=== PATIENT | female | born 1975 | race Caucasian/White ===

== ENCOUNTER → 2019-01-10 16:56 | Outpatient (CLI) | payer SELFPAY ==
[2019-01-13 16:33] LABS: HPV Reflexed? NOT INDICATED
== END ==
PROVIDERS: Visit Provider Obstetrics & Gynecology
DX: Z12.4 Encounter for screening for malignant neoplasm of cervix (principal)
CPT/HCPCS: 87624; 88175; G0145

== ENCOUNTER → 2019-02-02 15:17 | Outpatient (CLI) | payer SELFPAY ==
--- NOTE | 2019-02-02 15:27 | BI_ITS ---
MAMMOGRAPHY - BILATERAL SCREENING REASON FOR EXAM: Female, 43 years old. Routine annual screening examination. PERTINENT HISTORY: Grandmother with breast cancer. TECHNIQUE: Digital bilateral breast anette (3D mammographic acquisition) in the CC and MLO projections. 2-D mediolateral oblique (MLO) and craniocaudad (CC) views of both breasts were obtained. CAD: Full Field Digital Mammography with Computer Added Detection was performed. COMPARISON: Comparison is made with prior examination dated April 09, 2009. FINDINGS: Breast Composition: The breasts are heterogeneously dense, which may obscure small masses. There are no dominant masses or suspicious calcifications. No other significant abnormalities are identified. There has been no significant change since the prior study. BI/SCREENING MAMM (CAD), BILAT IMPRESSION: Stable bilateral screening mammogram. Yearly follow-up mammogram recommended. (A) ASSESSMENT CATEGORY: BIRADS Category 1: Negative. A letter regarding these results will be sent to the patient by the facility within 30 days. Approximately 10% of breast cancers are not detected by mammography. A normal mammogram should not delay biopsy of a clinically suspicious abnormality. [id number] Electronically Signed: Caesar Eli, at 9:45 EDT , Service support ,
== END ==
PROVIDERS: Referring Provider Obstetrics & Gynecology; Visit Provider Obstetrics & Gynecology
DX: Z12.31 Encounter for screening mammogram for malignant neoplasm of breast (principal)
CPT/HCPCS: 77063; 77067

== ENCOUNTER → 2020-11-07 | Outpatient (CLI) | payer SELFPAY ==
[2020-11-13 14:42] LABS: HPV Reflexed? NOT INDICATED
== END | disposition home or self-care (01) ==
LOC: LABSPEC 14:35
PROVIDERS: Visit Provider Obstetrics & Gynecology
DX: Z12.4 Encounter for screening for malignant neoplasm of cervix (principal)
CPT/HCPCS: 88175; G0145

== ENCOUNTER → 2020-11-21 12:09 | Outpatient (CLI) | payer SELFPAY ==
--- NOTE | 2020-11-21 12:15 | BI_ITS ---
MAMMOGRAPHY - BILATERAL SCREENING REASON FOR EXAM: Female, 45 years old. Routine annual screening examination. PERTINENT HISTORY: Grandmother with breast cancer. TECHNIQUE: Digital bilateral breast arvin (3D mammographic acquisition) in the CC and MLO projections. 2-D mediolateral oblique (MLO) and craniocaudad (CC) views of both breasts were obtained. CAD: Full Field Digital Mammography with Computer Added Detection was performed. COMPARISON: Comparison is made with prior study dated 02/02/2019. FINDINGS: Breast Composition: The breasts are heterogeneously dense, which may obscure small masses. There are no dominant masses or suspicious calcifications. Stable small benign-appearing bilateral axillary lymph nodes. No other significant abnormalities are identified. There has been no significant change since the prior study. BI/SCRN MAMM (CAD)W/ARVIN BILAT IMPRESSION: Stable bilateral screening mammogram. Yearly follow-up mammogram recommended. (A) ASSESSMENT CATEGORY: BIRADS Category 2: Benign. A letter regarding these results will be sent to the patient by the facility within 30 days. Approximately 10% of breast cancers are not detected by mammography. A normal mammogram should not delay biopsy of a clinically suspicious abnormality. [id number] Electronically Signed: Caesar Eli MD at 13:01 EST , Service support ,
== END ==
PROVIDERS: Referring Provider Obstetrics & Gynecology; Visit Provider Obstetrics & Gynecology
DX: Z12.31 Encounter for screening mammogram for malignant neoplasm of breast (principal)
CPT/HCPCS: 77063; 77067

== ENCOUNTER 2021-12-11 14:05 | Outpatient (CLI) | payer SELFPAY ==
[2021-12-18 17:20] LABS: HPV Reflexed? NOT INDICATED
== END 2021-12-11 23:59 | disposition home or self-care (01) ==
LOC: LABSPEC 14:06
PROVIDERS: Visit Provider Obstetrics & Gynecology
DX: Z12.4 Encounter for screening for malignant neoplasm of cervix (principal)
CPT/HCPCS: 88175; G0145

== ENCOUNTER 2021-12-16 12:05 | Outpatient (CLI) | payer SELFPAY ==
--- NOTE | 2021-12-16 12:11 | BI_ITS ---
MAMMOGRAPHY - BILATERAL SCREENING REASON FOR EXAM: Female, 46 years old. Routine annual screening examination. PERTINENT HISTORY: Grandmother with breast cancer. TECHNIQUE: Digital bilateral breast arvin (3D mammographic acquisition) in the CC and MLO projections. 2-D mediolateral oblique (MLO) and craniocaudad (CC) views of both breasts were obtained. CAD: Full Field Digital Mammography with Computer Added Detection was performed. COMPARISON: Comparison is made with prior study dated 11/21/2020. FINDINGS: Breast Composition: The breasts are heterogeneously dense, which may obscure small masses. There are no dominant masses or suspicious calcifications. Stable small benign appearing bilateral axillary lymph nodes. No other significant abnormalities are identified. There has been no significant change since the prior study. BI/SCRN MAMM (CAD)W/ARVIN BILAT IMPRESSION: Stable bilateral screening mammogram. Yearly follow-up mammogram recommended. (A) ASSESSMENT CATEGORY: BIRADS Category 2: Benign. A letter regarding these results will be sent to the patient by the facility within 30 days. Approximately 10% of breast cancers are not detected by mammography. A normal mammogram should not delay biopsy of a clinically suspicious abnormality. [id number] Electronically Signed: Caesar Eli MD at 13:17 EDT ,
== END 2021-12-16 23:59 | disposition home or self-care (01) ==
LOC: OPBI 12:06
PROVIDERS: Visit Provider Obstetrics & Gynecology
DX: Z12.31 Encounter for screening mammogram for malignant neoplasm of breast (principal); Z80.3 Family history of malignant neoplasm of breast
CPT/HCPCS: 77063; 77067

== ENCOUNTER 2022-02-03 05:22 | Day surgery (SDC) | payer SELFPAY ==
[2022-01-28 15:30] LABS: Hematocrit 42.9 % (37-47); Hemoglobin 14.9 g/dL (12.0-15.0); Mean Corp Hgb Conc 34.7 g/dL (32-36); Mean Corpuscular Hgb 30.8 pg (27.0-32.0); Mean Corpuscular Volume 88.8 fL (81-99); Mean Platelet Vol. 10.3 fl (6.2-12.0); Platelet Count 344 K/mm3 (150-450); RBC Distribution Width CV 11.4 % (11.6-14.6); RBC Distribution Width SD 36.7 fl (35.1-43.9); Red Blood Count 4.83 M/mm3 (4.2-5.4); White Blood Count 7.9 K/mm3 (4.4-11.0)
[2022-01-28 15:42] LABS: Partial Thromboplast Time 26.9 Seconds (24.1-36.2)
[2022-01-28 16:01] LABS: Creatinine, Serum 0.79 mg/dL (0.55-1.02); EST Glomerular Filtration Rate 84 mL/min (>60); Est Glom Filt Rate - Afr Amer 101 mL/min (>60)
[2022-01-28 16:10] LABS: Magnesium 2.3 mg/dL (1.6-2.6); Thyroid Stim Hormone (TSH) 8.15 uIU/mL (0.358-3.74)
[2022-01-30 18:02] LABS: Free T3 2.1 pg/mL (2.18-3.98)
--- NOTE | 2022-02-02 11:28 | HP.PCM_ITS ---
History and Physical Date of Admission: 02/03/22 Surgical History and Physical Aline Aragon, a 46 year old female 2 0 1 0 2, presents for RAVH/BSO on February 03, 2022 at 0730. -- Pelvic Pain and Dyspareunia Likely from Adenomyosis; Submucous Fibroids -- AUB for several years. Claims bleeds through clothes on occasion. Had thyro id ablation and no longer taking meds due to cost and other bills like at the hospital. Wants the bleeding to stop. PT had previous ablation and tuballigation. U/S shows submucous fibroids and likely adenomyosis. Still thinking about having a BSO and decided she wants to proceed with BSO. MEDICATIONS HISTORY: Current medications prescribed by our practice are: 1. Synthroid 50 mcg tablet, One pill by mouth once a day Patient is also takin. [place] Thyroid 90 mg tablet ALLERGIES: NKA Infections - Chicken pox Illnesses - no serious past illnesses Accidents - no injuries of consequence Hospitalizations - Childbirth and see surgery Review of Systems: GENERAL - Denies fever, or chills SKIN - Denies skin changes EYES - Denies visual changes EARS - Denies difficulty hearing NOSE - Denies nasal congestion or bleeding MOUTH - Denies sore throat or difficulty swallowing NECK - Denies pain or swelling RESPIRATORY - Denies shortness of breath or wheezing CARDIOVASCULAR - Denies palpitations or chest pain GASTROINTESTINAL - Denies nausea, vomiting, diarrhea, constipation GENITOURINARY - Denies dysuria, frequency of urination, incontinence of urine MUSCULOSKELETAL - Denies joint or muscle pain NEUROLOGICAL - Denies localized numbness or weakness PSYCHIATRIC - Denies depression or anxiety ENDOCRINE - Denies heat or cold intolerance, weight loss or gain HEMATO-IMMUNOLOGIC - Denies excesive bleeding with cuts SOCIAL HISTORY: Alcohol Use - None Smoking - former smoker, quit 2011 Diet - no special diet Lifestyle - moderate stress lifestyle and Exercise - minimal Seat Belt Use - always 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 Maternal Grandmother: Heart Disease. Paternal Grandmother: Breast cancer. MENSTRUAL HISTORY: LMP Known?- Definite Amount/Duration - 5 to 7 days, Regularity - Irregular, Frequency - variable days, LMP - 01/11/22 PAST PREGNANCIES: Total Pregnancies - 3; Full Term Pregnancies - 2; Premature - 0; Abortions, Induced - 0; Abortions, Spontaneous - 1; Ectopics - 0; Multiple Births - 0; Living Children - 2 SURGICAL HISTORY: 1. left arm surgery as child 2. 11/01/2004 hysteroscopy, Ablation, Tubal PHYSICAL EXAM BP- 132/86 Sitting, Right arm, regular cuff Weight- 178.0 lbs Height- 62 inch BMI:32.6 CONSTITUTIONAL - NAD, well nourished, and well developed SKIN - No rash, lesions, or ulcers HEENT - Normocephalic, PERRLA, EOMI NECK - No nodes, no nuchal rigidity and thyroid normal size and texture LYMPH NODES - Palpation of lymph nodes in neck and groins within normal limits LUNGS - CTA x2 without wheezes, crackles or rales CARDIAC - Regular rate and rhythm without rubs, murmurs, or gallops BREAST - No dominant masses, no tenderness, no axillary adenopathy, no nipple discharge, no skin changes ABDOMEN - Without hepatosplenomegaly, distention, masses, rebound, or guarding; normal bowel sounds; no hernias EXTREMITIES - No edema or calf tenderness NEUROLOGICAL - Cranial nerves II-XII grossly intact PSYCHIATRIC - A and O to time, place, person, mood and affect External Genitial Vagina - non-tender without lesions Urethra/Urethral Meatus - non-tender Bladder - non-tender Vagina - vaginal maxwell are pink and moist without loss of rugae and no evidence of atropy Cervix - without cervical motion tenderness and has normal size and features without evident lesions Uterus - multiparous size 6 cm & wt 75-125 g and increased tenderness Adnexa - clear without masses or tenderness ASSESSMENT/PLAN: 1. Dyspareunia, Pelvic Pain, Unspec, Premenopause Menorrhagia and Submucous Leiomyoma Uterus Discussed options to treat s/p endometrial ablation. Discussed OCPs and pt considering this versus expectant management as no intermenstrual bleeding. Plan RAVH/BSO. Discussed RBAs and all questions answered.
[2022-02-03] VITALS (11 sets, daily range): BP systolic 90–121; BP diastolic 58–78; PULSE 78–99; RESP 11–19; TEMP 36.8–37.6; O2SAT 97–100; BMI 32.6
[2022-02-03 06:04] LABS: Internal QC Validated? YES +Cl - CLEAR BKGD; Pregnancy, Urine Negative Negative
[2022-02-03] MEDS: Acetaminophen 500 MG Tablet 1000 MG PO ×2 (06:28→14:40)
[2022-02-03] MEDS: Gabapentin 600 MG Tablet PO (06:28)
[2022-02-03] MEDS: Lactated Ringers 1,000 ML 40 ML IV (06:57)
--- NOTE | 2022-02-03 07:30 | HYST_PTH ---
PATIENT: SALVADOR SOTELO [place] [facility] [id number] AGE/SX: 46/F ROOM: RE02/03/[address]: Dr. Theron Kelsey MD : 1975 BED: DIS: 02/03/2022 SPEC #: [id number] RECD: 02/03/22 11:37 STATUS: FLORA LEVI #: [id number] VIDA: 02/03/22 07:[address]: Theron Kelsey DEPT: SURGICAL PATHOLOGY RECD BY: Anika Arana ENTERED: 02/03/22 12:41 SP TYPE: HYSTERECT OTHR DR: No Primary Care Phys Tissues: Uterus, NOS Procedures: Surgery Specimen Level V HEADER OPERATION: ERAS, lap robotic hysterectomy, bilateral salpingo-oophorectomy PRE-OP DIAGNOSIS: Dyspareunia, pelvic pain, premenopause menorrhagia and submucous leiomyoma TISSUE SUBMITTED: Uterus, cervix, bilateral fallopian tubes and ovaries MICROSCOPIC DIAGNOSIS Uterus, cervix, bilateral fallopian tubes and ovaries, hysterectomy and bilateral salpingo-oophorectomy: Cervix ? chronic cystic cervicitis. Endometrium ? early secretory endometrium. Myometrium ? adenomyosis. - A small intramural leiomyoma (0.3 cm in greatest dimension). Bilateral fallopian tubes - no pathologic diagnosis. Right ovary - no pathologic diagnosis. Left ovary ? physiologic corpus luteal cysts and follicular cysts. SJ:lei 02/04/2022 COMMENT Two larger ill-defined masses are consistent with adenomyosis. MICROSCOPIC DESCRIPTION Slides are reviewed. GROSS DESCRIPTION Received in fixative is one container labeled with the patient's name and designated uterus, cervix, bilateral fallopian tubes and ovaries. The specimen consists of a hysterectomy specimen consisting of uterus with cervix, attached bilateral fallopian tubes and ovaries. The uterus with cervix weighs 103 gm and measures 9 x 6 x 4.5 cm. The serosal surface is baron, glistening. The ectocervical mucosa is unremarkable. The external os is oval in contour. The endocervical canal measures 3 cm in length and the endocervical mucosa is unremarkable. Sections reveal a few cysts filled with mucoid material. The triangular endometrial cavity measures 4 cm in length and up to 2.5 cm in width. Sections of the uterine wall reveal two ill-defined nodular masses measuring 1.5 and 3.5 cm in greatest dimension. One round small nodular mass is also noted measuring 0.3 cm in greatest dimension. All three masses are present in the anterior uterine wall. The uninvolved uterine wall measures up to 2.5 cm in thickness. The right fallopian tube measures 5 cm in length and 0.6 cm in diameter. The fimbrial end is identified. Sections reveal unremarkable cut surfaces. The right ovary measures 2.5 x 1.5 x 1 cm. Sections reveal a hemorrhagic cyst measuring 1 cm in diameter. The left fallopian tube measures 7 cm in length and 0.7 cm in diameter. The fimbrial end is identified. Sections reveal unremarkable cut surfaces. The proximal portion of the fallopian tube shows a Filshie clip which appears intact. No tubo-ovarian adhesions are identified on the right or left side. The soft to cystic left ovary measures 3.5 x 2.5 x 2.5 cm. Sections reveal two corpus lutea each measuring 1.5 cm in greatest dimension. A few smaller corpus lutea are also noted. Checker In sections are submitted in 12 cassettes as follows: 1 - anterior cervix, 2??posterior cervix, 3 & 4 - anterior uterine wall, 5 & 6 - posterior uterine wall, 7 - smaller nodular masses, 8 - largest nodular mass, 9 - right fallopian tube and ovary, 10 - left fallopian tube, 11 & 12 - left ovary. / SJ:rg 02/03/2022 TC:5 CPT: 21918
--- NOTE | 2022-02-03 07:32 | OP.PCM_ITS ---
Report of Operation Date of Procedure: 02/03/22 Pre-Operative Diagnosis: Menorrhagia, Submucous Fibroids, Dysmenorrhea Post-Operative Diagnosis: Menorrhagia, Submucous Fibroids, Dysmenorrhea Surgery/Procedure Performed:: Robotic Assisted Vaginal Hysterectomy and Bilateral Salpingo-Oophorectomy Description of Surgical Findings:: 10 cm uterus with normal-appearing fallopian tubes and ovaries. Evidence of prior tubal ligation. Adhesions noted in the uterus. Surgeon: Theron Kelsey launch manager: Brody Novak Type of Anesthesia: General (Endotracheal) Anesthesiologist: Mariana Hatch Specimen's removed: Uterus and bilateral fallopian tubes and ovaries. Drains: Ivy to straight drain (removed after surgery) Estimated Blood Loss (mL): Minimal Fluids Replaced: Crystalloid Description of Procedure: Surgeon: Theron Kelsey MD, FACOG Indication: This is a 46year old patient who has been having problems with heavy periods and submucous fibroids. She had a prior endometrial ablation done. Conservative measures have not been helpful. The patient has been counseled regarding the risks, benefits and alternatives of this procedure including the possibility of bleeding, infection, and injury to surrounding structures such as bowel bladder and all questions were answered. She understands that if BSO is done that she may need to be on HRT for an indefinite period of time. Procedure: Pt taken to the operating room where, after induction of general anesthesia, the patient was prepped and draped in the usual sterile fashion and placed on a non-slip Huggy-u-vac device. Trendelenburg test was satisfactory. Bladder was drained of urine with a Ivy catheter which was left in place. Anterior cervix grasped and cervix was dilated to about 3-4 mm. Uterus sounded to 8 cms. 0-Vicryl suture was placed at the 3:00 and 9:00 position of the cervix. A large Advincula Commanding Officer Garage Uterine Manipulator was then placed in the uterus and attention was turned to the laparoscopic portion of the procedure. Ropivocaine 0.5% was injected approximately 2-3 cm superior to the umbilicus and an 8 mm robotic camera port was introduced directly with intraperitoneal placement confirmed with CO2 insufflation. 8 mm robotic side ports were introduced under direct visualization approximately 11 cm lateral and 2 cm inferior to the umbilical port. A 5 mm left upper quadrant port was introduced and airseal insufflation with CO2 was started. The above findings were noted. Robot was docked without difficulty and attention turned to the robotic portion of the procedure. Approximately 30 cc of Ropivicaine was used. Bilateral infundibulopelvic ligaments were ligated with 35 lópez bipolar coagulation to the level of the round ligament. The posterior aspect of the cervix was identified and then opened for about 1 cm using 25 watt monopolar cautery identifying the uterine manipulating device which had been placed vaginally. Bladder flap was opened and divided to the level of the round ligaments using monopolar cautery. Progressive bites were then ligated on each side of the cervix with 35 lópez bipolar cautery to the uterine arteries. The anterior vaginal mucosa was entered and cervix circumscribed with monopolar cautery. Uterus and attached tubes and ovaries were removed through the vagina. Vaginal cuff was closed first with 0-Vicryl Galilea stitches placed at each angle followed by closure of the mid-cuff with 0-Monocryl V-lock suture in two layers. Pelvis was copiously irrigated with saline and the right ureter was noted to peristalse. Elizabeth was placed across the vaginal cuff to help with postoperative hemostasis due to some oozing. Robot was undocked and trocars were removed with as much gas as possible. Incisions were closed with 4-0 Monocryl subcuticular sutures and incisions covered with steri-strips. The patient tolerated the procedure well and was taken to the recovery room in satisfactory condition. Sponge, instruments and needle counts were all correct. There were no apparent complications of the surgery. Ancef 2 gms IV was given prior to the procedure. Estimated Blood Loss: Minimal Specimen to Pathology: Uterus and bilateral fallopian tubes Grafts/Implants Used: None Complications None Admit VTE Documentation VTE Present on Admission: Yes VTE Mechan Device Prophylaxis: SCD's
--- NOTE | 2022-02-03 07:35 | DCINST_ITS ---
Discharge Instructions Diet Discharge Diet: No restrictions Activity Discharge Activity: May Shower and May Take a Tub Bath May resume sexual activity in: 6 weeks (nothing in the vagina.) Lifting Restrictions: 25 pounds for 6 weeks. Additional Activity Instructions:: Nothing in the vagina for 6 weeks please; no lifting more than 20-25 lbs for 6 weeks. Use Ibuprophen 800 mg orally every 8 hours as needed for pain. Can also add Tylenol 1000 mg every 8 hours if needed for pain. If Ibuprophen and Tylenol are not effective then use the Oxycodone but keep in mind it can cause serious constipation issues. Drink lots of water. Call if bleeding more than a pad per hour. Use the colace as constipation is a big issue after this type of surgery. Steps and walking are OK. Activity is encouraged but do not over do it !! Dressing / Incision Call your doctor if your incision/area has: Continuous Slow Oozing, Sudden Increased Bleeding, Increased Pain/ Swelling, Increased Redness and Foul Smelling Discharge Call your doctor if you observe: Fever of 101 or Higher, Inability to urinate, Inability to have a bowel movement, Using more than 1 pad per hour and - (Some vaginal bleeding may be noted for up to 4-8 weeks.) Cleanse incision/area with: - (Let the soapy water run over your incision, rinse and pat dry.) Additional Dressing/Incision Instructions:: The white strips (Steri Strips) on your incisions will fall off on their own. If they fall off and it bothers you it is okay to put Band-Aids across the incisions. Follow Up Care Please Follow Up With: Theron Kelsey MD When: Call [phone] for an appointment to be seen in 2 weeks. Test Results: Test results from this visit will be discussed in further detail at your follow-up appointment, if applicable. Discharge Plan Admission Primary Reason for Your Visit: Robotic Vaginal Hysterectomy Attending Provider: Theron Kelsey Primary Care Provider: Care PhysicianLexie Primary Discharge Orders/Prescriptions Prescriptions: New oxycodone 5 mg capsule 5 mg PO Q6H PRN (Reason: pain (scale score 7-10)) 7 Days Qty: 7 RF: 0 docusate sodium 100 mg tablet 100 mg PO BID PRN (Reason: constipation) Qty: 60 RF: 1 estradiol 1 mg tablet 1 mg PO DAILY Qty: 90 RF: 4 Continued ibuprofen 100 mg Tablet 200 mg PO Q6H PRN (Reason: headaches) RF: 0 thyroid (pork) [[employer] Thyroid] 120 mg tablet 90 mg PO DAILY RF: 0 Referrals / Follow Up: Care Physician,No Primary [Primary Care Provider] - Disposition Disposition (needs filled in before D/C Order can be placed): Home, Self Care
[2022-02-03] MEDS: Cefazolin 2 GM in 0.9% Normal Saline 100 ML IV (07:38)
[2022-02-03 07:41] LABS: Bedside Glucose 103 mg/dL (74-106)
[2022-02-03] MEDS: Ropivacaine 0.5% 30 ML Vial (09:40)
--- NOTE | 2022-02-03 10:56 | SUR.PHASEI ---
THIS NURSE CALLED KATELYN OCEAN EXPORT COORDINATOR TO UPDATE FAMILY THAT SHE IS DOING GOOD, JUST TRYING TO TOMMY HER PAIN UNDER CONTROL.
[2022-02-03] MEDS: Ondansetron 4 MG/2 ML Vial IV (12:31)
== END 2022-02-03 14:57 | disposition home or self-care (01) ==
LOC: SDC 05:22 → AC 05:22
PROVIDERS: Anesthesiology; Referring Provider Obstetrics & Gynecology; Visit Provider Obstetrics & Gynecology
PROC: 0UT90ZZ Resection of Uterus, Open Approach (ICD-10-PCS; CPT 58552; principal; 2022-02-03 07:10)
DX: N92.4 Excessive bleeding in the premenopausal period (principal); N94.10 Unspecified dyspareunia; D25.0 Submucous leiomyoma of uterus; D25.1 Intramural leiomyoma of uterus; N83.02 Follicular cyst of left ovary; N83.12 Corpus luteum cyst of left ovary; N80.0 Endometriosis of uterus; N72 Inflammatory disease of cervix uteri; E07.9 Disorder of thyroid, unspecified; Z79.899 Other long term (current) drug therapy; Z86.16 Personal history of COVID-19; Z87.891 Personal history of nicotine dependence; Z20.822 Contact with and (suspected) exposure to COVID-19
CPT/HCPCS: 58552; S2900; 00944; 36415; 81025; 82565; 82962; 83735; 84439; 84443; 84481; 85027; 85610; 85730; 86850; 86900; 86901; 87426; 88307; C9803; J7120; J2405; J3475

== ENCOUNTER → 2022-11-19 | Outpatient (CLI) | payer SELFPAY ==
[2022-11-19 17:12] LABS: Absolute Lymphocyte Count 2.18 X10^3/uL (0.83-4.51); Absolute Neutrophil Count 5.3 X10^3/uL (2.0-7.7); Basophil# 0.06 X10^3/uL; Basophil% 0.7 % (0-1); Eosinophil# 0.13 X10^3/uL; Eosinophils% 1.6 % (0-5); Hematocrit 43.2 % (37-47); Hemoglobin 14.6 g/dL (12.0-15.0); Lymphocyte # 2.18 X10^3/ul (0.83-4.51); Lymphocyte % 26.8 % (19-41); Mean Corp Hgb Conc 33.8 g/dL (32-36); Mean Corpuscular Hgb 29.9 pg (27.0-32.0); Mean Corpuscular Volume 88.3 fL (81-99); Monocyte# 0.45 X10^3/uL; Monocyte% 5.5 % (0-10); NRBC Flagged by Analyzer 0 % (0-5); Neutrophil % 65.2 % (47-70); Platelet Count 310 K/mm3 (150-450); RBC Distribution Width CV 11.4 % (11.6-14.6); RBC Distribution Width SD 36.3 fl (35.1-43.9); Red Blood Count 4.89 M/mm3 (4.2-5.4); White Blood Count 8.1 K/mm3 (4.4-11.0)
[2022-11-19 17:46] LABS: ALB/GLOB Ratio 0.9 RATIO (0.9-2.4); AST(SGOT) 23 U/L (15-37); Alanine Aminotransfer ALT/SGPT 28 U/L (13-56); Albumin, Serum 3.7 g/dL (3.2-5.0); Alkaline Phosphatase 72 U/L (45-117); Anion Gap 9 (5-15); BUN 15 mg/dL (7-18); BUN/Creat Ratio 20.8 RATIO (10-20); Calcium,Total 9.5 mg/dL (8.5-10.1); Chloride 106 mmol/L (98-107); Cholesterol 206 mg/dL (200); Creatinine, Serum 0.72 mg/dL (0.55-1.02); EST Glomerular Filtration Rate 93 mL/min (>60); Est Glom Filt Rate - Afr Amer 112 mL/min (>60); Globulin 3.9 g/dL (2.2-4.2); Glucose 85 mg/dL (74-106); High Density Lipoprotein 53 mg/dL; Potassium 3.6 mmol/L (3.5-5.1); Protein, Total 7.6 g/dL (6.4-8.2); Sodium Level 139 mmol/L (136-145); Thyroid Stim Hormone (TSH) 0.06 uIU/mL (0.358-3.74); Triglycerides 233 mg/dL; Very Low Density Lipoprotein 47 mg/dL (5-40)
== END | disposition home or self-care (01) ==
LOC: BIMLAB 15:14
PROVIDERS: PCP Internal Medicine; Referring Provider Internal Medicine; Visit Provider Internal Medicine
DX: E78.5 Hyperlipidemia, unspecified (principal)
CPT/HCPCS: 36415; 80053; 80061; 84443; 85025

== ENCOUNTER → 2022-12-17 | Outpatient (CLI) | payer SELFPAY ==
--- NOTE | 2022-12-17 11:53 | BI_ITS ---
MAMMOGRAPHY - BILATERAL SCREENING REASON FOR EXAM: Female, 47 years old. Routine annual screening examination. PERTINENT HISTORY: Grandmother with breast cancer. TECHNIQUE: Digital bilateral breast arvin (3D mammographic acquisition) in the CC and MLO projections. 2-D mediolateral oblique (MLO) and craniocaudad (CC) views of both breasts were obtained. CAD: Full Field Digital Mammography with Computer Added Detection was performed. COMPARISON: Comparison is made with prior study dated December 16, 2021 and November 21, 2020. FINDINGS: Breast Composition: The breasts are heterogeneously dense, which may obscure small masses. There are no dominant masses or suspicious calcifications. Stable small benign-appearing bilateral axillary lymph nodes. No other significant abnormalities are identified. There has been no significant change since the prior study. BI/SCRN MAMM (CAD)W/ARVIN BILAT IMPRESSION: Stable bilateral screening mammogram. Yearly follow-up mammogram recommended. (A) ASSESSMENT CATEGORY: BIRADS Category 2: Benign. A letter regarding these results will be sent to the patient by the facility within 30 days. Approximately 10% of breast cancers are not detected by mammography. A normal mammogram should not delay biopsy of a clinically suspicious abnormality. [id number] Electronically Signed: Caesar Eli MD at 13:13 EDT ,
== END | disposition home or self-care (01) ==
LOC: OPBI 11:49
PROVIDERS: PCP Internal Medicine; Visit Provider Internal Medicine
DX: Z12.31 Encounter for screening mammogram for malignant neoplasm of breast (principal)
CPT/HCPCS: 77063; 77067

== ENCOUNTER 2022-12-22 14:17 | Outpatient (RCR) | payer SELFPAY | END 2022-12-26 23:59 | LOC: NS 14:17 | PROVIDERS: PCP Internal Medicine; Visit Provider Internal Medicine | DX: Z71.3 Dietary counseling and surveillance (principal); E66.9 Obesity, unspecified; Z68.34 Body mass index [BMI] 34.0-34.9, adult | CPT/HCPCS: 97802 ==

== ENCOUNTER → 2022-12-22 | Outpatient (CLI) | payer SELFPAY ==
[2022-12-22 15:12] LABS: T4 Free Direct 0.51 ng/dL (0.76-1.46)
[2022-12-24 12:09] LABS: ANTINUCLEAR ANTIBODIES DIRECT Positive (Negative); Anti-Centromere B Ab 1.1 AI (0.0-0.9); Anti-Chromatin 0.8 AI (0.0-0.9); Anti-Jo <0.2 AI (0.0-0.9); Anti-Scleroderma-70 AB 0.2 AI (0.0-0.9); RNP Ab 0.6 AI (0.0-0.9); SJOGREN'S Anti-SS-A test < 0.2 AI (0.0-0.9); SJOGREN'S Anti-SS-B test < 0.2 AI (0.0-0.9); Smith Ab <0.2 AI (0.0-0.9)
[2022-12-24 16:08] LABS: Anti-dsDNA Ab 2 IU/mL (0-9)
== END | disposition home or self-care (01) ==
LOC: LAB 14:05
PROVIDERS: PCP Internal Medicine; Referring Provider Internal Medicine; Visit Provider Internal Medicine
DX: E03.9 Hypothyroidism, unspecified (principal); Z83.2 Family history of diseases of the blood and blood-forming organs and certain disorders involving the immune mechanism
CPT/HCPCS: 36415; 84439; 86038; 86225; 86235

== ENCOUNTER → 2023-04-07 | Outpatient (CLI) | payer SELFPAY ==
[2023-04-07 11:31] LABS: EXAGEN MAILED SPECIMEN
[2023-04-07 12:23] LABS: Absolute Lymphocyte Count 1.83 X10^3/uL (0.83-4.51); Absolute Neutrophil Count 4.5 X10^3/uL (2.0-7.7); Basophil# 0.06 X10^3/uL; Basophil% 0.8 % (0-1); Eosinophil# 0.19 X10^3/uL; Eosinophils% 2.7 % (0-5); Hematocrit 43.2 % (37-47); Hemoglobin 14.9 g/dL (12.0-15.0); Lymphocyte # 1.83 X10^3/ul (0.83-4.51); Lymphocyte % 25.6 % (19-41); Mean Corp Hgb Conc 34.5 g/dL (32-36); Mean Corpuscular Hgb 30.4 pg (27.0-32.0); Mean Corpuscular Volume 88.2 fL (81-99); Mean Platelet Vol. 10.8 fl (6.2-12.0); Monocyte# 0.57 X10^3/uL; NRBC Flagged by Analyzer 0 % (0-5); Neutrophil # 4.46 X10^3/uL (2.7-7.7); Neutrophil % 62.5 % (47-70); Platelet Count 294 K/mm3 (150-450); RBC Distribution Width CV 11.4 % (11.6-14.6); RBC Distribution Width SD 36.7 fl (35.1-43.9); White Blood Count 7.1 K/mm3 (4.4-11.0)
[2023-04-07 12:26] LABS: Color, Urine Yellow (Yellow); Glucose, Dipstick Normal (Normal); Ketone-Dipstick Negative (Negative); Leukocyte Esterase-Dipstick Negative /ul (Negative); Nitrite-Dipstick Negative (Negative); Occult Blood-Urine 10 /ul (Negative); Protein-Dipstick Negative (Negative); Urine Bilirubin Dipstick Negative (Negative); Urine Clarity Clear (Clear); Urine Urobilinogen Normal (Normal)
[2023-04-07 12:46] LABS: Protein, Urine (Random) 12.3 mg/dL (<11.9); Protein:Creat Ratio 122 mg/g CRE (0-200)
[2023-04-07 12:56] LABS: ALB/GLOB Ratio 0.7 RATIO (0.9-2.4); AST(SGOT) 19 U/L (15-37); Alanine Aminotransfer ALT/SGPT 23 U/L (13-56); Albumin, Serum 3.1 g/dL (3.2-5.0); Alkaline Phosphatase 81 U/L (45-117); Anion Gap 6 (5-15); BUN 12 mg/dL (7-18); BUN/Creat Ratio 15.5 RATIO (10-20); Chloride 108 mmol/L (98-107); Creatinine, Serum 0.78 mg/dL (0.55-1.02); EST Glomerular Filtration Rate 85 mL/min (>60); Est Glom Filt Rate - Afr Amer 103 mL/min (>60); Globulin 4.2 g/dL (2.2-4.2); Glucose 81 mg/dL (74-106); Potassium 3.7 mmol/L (3.5-5.1); Protein, Total 7.3 g/dL (6.4-8.2); Sodium Level 138 mmol/L (136-145)
== END | disposition home or self-care (01) ==
LOC: MTLAB 10:28
PROVIDERS: PCP Internal Medicine; Referring Provider Internal Medicine Rheumatology; Visit Provider Internal Medicine Rheumatology
DX: M06.4 Inflammatory polyarthropathy (principal); R76.8 Other specified abnormal immunological findings in serum
CPT/HCPCS: 36415; 80053; 81002; 82570; 84156; 85025

== ENCOUNTER 2023-04-08 06:59 | Day surgery (SDC) | payer SELFPAY ==
[2023-04-08] VITALS (7 sets, daily range): BP systolic 112–134; BP diastolic 79–87; PULSE 74–88; RESP 16–18; TEMP 36.4–37; O2SAT 95–99; BMI 34.0
--- NOTE | 2023-04-08 06:33 | H&P.OPEN ---
[facility] - General General Date of Service: 04/08/23 [facility] Donato SOTELO, is a 48 F who presents for screening, prescription. Patient never had previous colonoscopy. Patient denies any family history of colon cancer. Patient's sister and mother did have some polyps not larger than a centimeter per patient and mother did also have some diverticulitis. Patient has bowel movements daily denies any blood. Patient denies any chronic abdominal pain/nausea/vomiting. Patient does have reflux more recently after her hysterectomy. Currently not on any medication for this and she has it almost daily. [facility] Medical History (Updated 04/06/23 @ 15:57 by Perla Kulkarni) Alcohol use Colon cancer screening COVID Elevated antinuclear antibody (UMESH) level Family history of autoimmune disorder Former smoker Gastric reflux Generalized anxiety disorder High blood triglycerides History of IBS History of rheumatic fever Hx of headache Hyperlipidemia Hypothyroidism (acquired) Irritable bowel syndrome Migraine headache Obesity (BMI 30-39.9) Restless legs Surgical menopause on hormone replacement therapy Thyroid disease Home Medications cyclobenzaprine 5 mg tablet 5 mg PO TID PRN Muscle Pain 11/19/22 [History Last Taken Unknown] naproxen 250 mg tablet 250 mg PO BID PRN Pain 11/19/22 [History Last Taken Unknown] thyroid (pork) 120 mg tablet ([place] Thyroid) 120 mg PO DAILY 12/17/22 [History Last Taken Unknown] multivitamin 1 tab PO DAILY 01/20/23 [History Last Taken Unknown] estradiol 1 mg tablet 1 mg PO DAILY #90 tabs 03/11/23 [Rx Last Taken Unknown] Allergy/AdvReac Type Severity Reaction Status Date / Time No Known Allergies Allergy Verified 04/08/23 07:23 Family History (Updated 01/20/23 @ 15:35 by Bailey Romo) Father Asthma Grandmother Breast cancer Grandmother Cancer Mother Cancer Colon polyps Diverticulitis Sister Colon polyps Diverticulitis Other Alcoholism Hx of blood clots Mental disorder Surgical History (Updated 02/03/23 @ 14:48 by Kim Frausto) H/O: hysterectomy History of surgery of uterus History of surgery on wrist History of tubal ligation Social History (Updated 01/20/23 @ 15:35 by Bailey Romo) household members: spouse Smoking Status: Former smoker alcohol intake: current alcohol intake frequency: holidays/special occasions only what type of physical activity do you participate in: none Past Medical/Surgical History Planned Operation Planned Operative Procedure/s: COLONOSCOPY-OA Previous Hospitalizations/Surgeries HX Hospitalizations: No Any Problems With Anesthesia: No You/Your Family Experience Fever (Hyperthermia) With Anes: No Cholinesterase deficiency: No Cardiovascular Hx of Irregular Heartbeat and/or Afib: No Hx Heart Attack: No Hx Congestive Heart Failure: No Hx Hypertension: No Hx Pacemaker: No Respiratory Hx Chronic Obstructive Pulmonary Disease (COPD): No Hx Asthma: No Hx Emphysema: No Hx Sleep Apnea: No Hx Respiratory Tract Infection/Cold (presently): No Do You Snore Loudly (louder than talking or can be heard): No Do You Often Feel Tired/ Fatigued/ Sleepy [place]ring Daytime?: No Has Anyone Observed You Stop Breathing During Sleep?: No Result (for STOP score): Negative Smoking Status: Former smoker Gastrointestinal Hx Gastroesophageal Reflux: No Hx Ulcer: No Neurological Hx Seizures: No Hx Head/Neck Injury: Yes Hx Headaches: Yes Hx Back Injury/Pain: No Does patient have nerve stimulator: No Reproduction : No Miscellaneous Recent Exposure to Contagious Disease: No Allergies No Known Allergies Allergy (Verified 04/08/23 07:23) Discharge Is Pt Admitted From a Halfway, or a Snf: No Who Could Help: FAMILY After D/C, Where Do you Plan to Go: Return Home Physical Exam Const alert, oriented x3 and no apparent distress HEENT normocephalic and head/scalp atraumatic Resp normal respiratory effort Cardio regular rate GI soft to palpation and non-tender; Negative for non-distended Palpation: Negative for guarding Extremity no clubbing, cyanosis or edema Neuro CN's II-XII intact bilaterally Psych mental status grossly normal Assessment & Plan Assessment/Plan (1) Colon cancer screening: Surgery Risks - Colonoscopy I discussed with the patient the risks of the procedure: Yes Risks Include but are not Limited To: Risks include but are not limited to: Bleeding, perforation requiring further surgery, inability to complete colonoscopy requiring barium enema.
[2023-04-08] MEDS: Lactated Ringers 1,000 ML 15 ML IV (07:34)
--- NOTE | 2023-04-08 08:24 | OP.CCLET_ITS ---
04/08/2023 Kumar Irby MD [address] [place] [address] [place] [address] Re : Colonoscopy procedure for Aline Aragon Dear Dr. Irby This procedure was performed on Saturday, April 08, 2023. My impressions and recommendations are as follows: Impressions : - Hemorrhoids found on perianal exam. - Non-bleeding internal hemorrhoids. - The entire examined colon is normal. - No specimens collected. Recommendations : - Discharge patient to home. - Resume previous diet. - Continue present medications. - Repeat colonoscopy in 10 years for screening purposes. My findings are described in the full procedure note, which is enclosed. If I can be of further assistance, please feel free to contact me at Doctor phone number(s): , Work: . Sincerely, MD Taylor Hinojosa MD 04/08/2023 8:23:04 AM This report has been signed electronically.
--- NOTE | 2023-04-08 08:24 | OP.COLON_ITS ---
Patient Name: Aline Aragon Procedure Date: 04/08/2023 6:10 AM Date of : 1975 Age: 48 Procedure: Colonoscopy Indications: Screening for colorectal malignant neoplasm Providers: Taylor Simons MD Referring MD: Taylor Simons MD Medicines: Monitored Anesthesia Care Patient Profile: This is a 48 year old female. Last Colonoscopy: none. The patient's first colonoscopy is today. Complications: No immediate complications. Procedure: Pre-Anesthesia Assessment: - Prior to the procedure, a History and Physical was performed, and patient medications and allergies were reviewed. The patient's tolerance of previous anesthesia was also reviewed. The risks and benefits of the procedure and the sedation options and risks were discussed with the patient. All questions were answered, and informed consent was obtained. Prior Anticoagulants: The patient has taken no previous anticoagulant or antiplatelet agents. ASA Grade Assessment: Per anesthesia. After reviewing the risks and benefits, the patient was deemed in satisfactory condition to undergo the procedure. After I obtained informed consent, the scope was passed under direct vision. Throughout the procedure, the patient's blood pressure, pulse, and oxygen saturations were monitored continuously. The was introduced through the anus and advanced to the cecum, identified by the appendiceal orifice, ileocecal valve and palpation. The colonoscopy was performed without difficulty. The patient tolerated the procedure well. The quality of the bowel preparation was good. Scope In: 8:00:33 AM Scope Withdrawal Time 0 hours 10 minutes 59 seconds Scope Out: 8:18:13 AM Total Procedure Duration Time 0 hours 17 minutes 40 seconds Findings: Hemorrhoids were found on perianal exam. Non-bleeding internal hemorrhoids were found. The hemorrhoids were Grade I (internal hemorrhoids that do not prolapse). The entire examined colon appeared normal. Impression: - Hemorrhoids found on perianal exam. - Non-bleeding internal hemorrhoids. - The entire examined colon is normal. - No specimens collected. Recommendation: - Discharge patient to home. - Resume previous diet. - Continue present medications. - Repeat colonoscopy in 10 years for screening purposes. Procedure Code(s): --- Professional --- G0121, PT, Colorectal cancer screening; colonoscopy on individual not meeting criteria for high risk Diagnosis Code(s): --- Professional --- Z12.11, Encounter for screening for malignant neoplasm of colon K64.0, First degree hemorrhoids CPT copyright 2017 [employer]. All rights reserved. The codes documented in this report are preliminary and upon remote medical coder review may be revised to meet current compliance requirements. MD Taylor Hinojosa MD 04/08/2023 8:23:04 AM This report has been signed electronically. Number of Addenda: 0 Note Initiated On: 04/08/2023 6:10 AM
== END 2023-04-08 09:18 | disposition home or self-care (01) ==
LOC: EN 07:03 → AC 07:05
PROVIDERS: PCP Internal Medicine; Referring Provider Internal Medicine; Visit Provider Surgery
PROC: 0DJD8ZZ Inspection of Lower Intestinal Tract, Via Natural or Artificial Opening Endoscopic (ICD-10-PCS; CPT 45378; principal; 2023-04-08 07:55)
DX: Z12.11 Encounter for screening for malignant neoplasm of colon (principal); K64.0 First degree hemorrhoids; E03.9 Hypothyroidism, unspecified; E66.9 Obesity, unspecified; Z68.34 Body mass index [BMI] 34.0-34.9, adult; Z79.899 Other long term (current) drug therapy; Z86.16 Personal history of COVID-19; Z87.891 Personal history of nicotine dependence; Z83.79 Family history of other diseases of the digestive system
CPT/HCPCS: 45378; J7120; J2405

== ENCOUNTER → 2023-06-29 | Outpatient (CLI) | payer SELFPAY ==
[2023-06-29 14:04] LABS: Thyroid Stim Hormone (TSH) 8.86 uIU/mL (0.358-3.74)
== END | disposition home or self-care (01) ==
PROVIDERS: PCP Internal Medicine; Referring Provider Internal Medicine; Visit Provider Internal Medicine
DX: E03.9 Hypothyroidism, unspecified (principal)
CPT/HCPCS: 36415; 84439; 84443

== ENCOUNTER 2023-09-03 15:30 | Outpatient (RCR) | payer SELFPAY ==
--- NOTE | 2023-08-24 15:28 | HP.PTEVAL ---
Patient's Visit Information Visit Information Visit Information: SALVADOR SOTELO is a 48 year old F referred to Physical Therapy by Dr. Alfred Schumacher MD with a diagnosis of lbp radiculopathy. Date of Evaluation: 08/24/23 Physical Therapist: Yaw Yañez, DPT, OCS, CSCS Visit Plan Frequency: 1-2x /Week Duration: 4-6 Weeks Plan: weekly to 2x/week for 4-6 weeks given PPU and towel roll and posture today next gentle bugs and hs/gastroc stretch and flexion rotation ROM then core strength mat to standing and yoga flows. Subjective Subjective: First part of June got some hip pain R and numbness down R leg. Insidious onset. Chriporactor got MRI and showed 2 HNP. Sent to pain management where he gave her gabapentin and had allergic reaction. Did lumbar injection last Thursday L45. That helped substantially. It helped 60%. Still has numbness in R LE and tingly positionally if moves a certain way. Also if she overdoes it with activity. Was in recliner for 6 weeks. 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 has done everything in the last week. cleaning house and driving to [place] to do estimates. Worse later in day. Sleeping well and has for the most part except rolling, used to wake up 2-3 x, night. 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 Pain LB, r hip: Pain Intensity (Out of 10): 0 Pain Intensity Range: 0 and 5 Objective Objective: Walks well without pain today, steps without pain, trasnfers slowly bed with min discomfort. PA pressure spine hurts, no soft tissue tenderness in LB parapsinals or gluts. LB AROM extension max limited with slight pulling, flexion slow but min limited, SB R limted > L. - slump. - SLR today. reflexes 2/3 patella and achilles B sensation WNL to gross light touch B LE strength core adn hip rotation and abd and ext 3+, hip flexion and knee flexion extension 4 but painful r hip flexion in LB(instability) ankles strength 4/5 B. HS and gastroc mod tight at -20 90/90 test. Balance/Special Test Scores Oswestry Low Back Score: 15 Goals Goal 1:: LB aROM WFL without pain Goal Time Frame: 4-6 Weeks Goal 2:: Pain 85% better at 1/10 at worst and manageable with exercises. Goal Time Frame: 4-6 Weeks Goal 3:: I core strength, LB ROM exercises to manage condition. Goal Time Frame: 4-6 Weeks Goal 4:: osestry score 5 or better Goal Time Frame: 4-6 Weeks Rehabilitation Potential Physical Therapy Diagnosis: limited ROM and strength and funciton due to LBP Rehabilitation Potential: Good Anticipated Interventions Patient/Client Instruction: Educate patient on: Condition and Plan of Care For the Purpose of:: To decrease pain, To increase ROM, To improve nutrient delivery to tissue, To improve muscle performance and motor function, To increase tolerance to activity/condition/position and To improve ability of physical actions for home/community/work/leisure Therapeutic Exercise to Include: Strength training, Postural training, Flexibilty training, Gait and locomotor training, Passive ROM, Active ROM and Dynamic Lumbar Stabilization For the Purpose of:: To decrease pain, To increase ROM, To improve nutrient delivery to tissue, To improve muscle performance and motor function, To improve ability to perform ADL's, To increase tolerance to activity/condition/position, To improve ability of physical actions for home/community/work/leisure and To improve gait and locomotor functions Thermo therapy (hot pack): Yes For the Purpose of:: To decrease pain Text: Thank you for the opportunity to evaluate your patient. For Medicare and Medicare HMO plans, please review the plan of care and approve it. It will need to be FAXED BACK to us at [phone] for Medicare purposes. For Medicare only, by signing this I certify the plan of care. Please let me know if there are questions or concerns regarding this plan of care. Physician Signature: Date:
--- NOTE | 2023-11-06 14:23 | HP.PT.NRP ---
Patient Information Patient Information: SALVADOR SOTELO was seen in my office for initial evaluation on 08/24/23. The following Plan of Care was established for this patient: POC Established Initial Frequency: 1-2x /Week Initial Duration: 4-6 Weeks Anticipated Interventions Patient/Client Instruction: Educate patient on: Condition and Plan of Care For the Purpose of:: To decrease pain, To increase ROM, To improve nutrient delivery to tissue, To improve muscle performance and motor function, To increase tolerance to activity/condition/position and To improve ability of physical actions for home/community/work/leisure Therapeutic Exercise to Include: Strength training, Postural training, Flexibilty training, Gait and locomotor training, Passive ROM, Active ROM and Dynamic Lumbar Stabilization For the Purpose of:: To decrease pain, To increase ROM, To improve nutrient delivery to tissue, To improve muscle performance and motor function, To improve ability to perform ADL's, To increase tolerance to activity/condition/position, To improve ability of physical actions for home/community/work/leisure and To improve gait and locomotor functions Thermo therapy (hot pack): Yes For the Purpose of:: To decrease pain Last Seen Last Seen: This patient was last seen in our office 09/03/23. Pertinent comments regarding their Physical therapy will appear below: Pt seen 2 visits of PCO and cancelled the rest never returning. At this point it has been over 2 months and I will be discontinuing her from my care. At this point I will be discontinuing this patient from physical therapy. I would be happy to see this patient again in the future if found appropriate by the physician. Thank you! Yaw Yañez, DPT, OCS, CSCS Balance/Gait/Functional tests Balance/Special Test Scores Oswestry Low Back Score: 15
== END 2023-09-03 19:00 | disposition home or self-care (01) ==
LOC: PT 15:30
PROVIDERS: PCP Internal Medicine; Visit Provider Anesthesiology
DX: M54.16 Radiculopathy, lumbar region (principal)
CPT/HCPCS: 97110; 97161

== ENCOUNTER 2023-09-19 15:27 | Emergency (ER) | payer SELFPAY ==
[2023-09-19 15:28] VITALS: BP 140/97; PULSE 85; RESP 14; TEMP 36.4; O2SAT 98; BMI 35.2
--- NOTE | 2023-09-19 15:53 | CT_ITS ---
STUDY: CTA OF THE BRAIN WITH AND WITHOUT CONTRAST REASON FOR EXAM: Female, 48 years old. headache. Family hx of brain aneurysms RADIATION DOSAGE (If Supplied By Facility): CTDIvol = ( 26.65 ) mGy, DLP = ( 1209.59 ) mGycm TECHNIQUE: CT angiography with and without contrast was performed with a multi-detector CT scanner. Data acquisition was obtained from the skull base through the vertex following intravenous administration of IV 100mL Isovue-370. MIP images were reconstructed from the axial data set. Post-processing of the angiographic images was performed, with multiplanar reformation and 3D reconstruction. Individualized dose optimization techniques were used for this CT. COMPARISON: None. STUDY: CT BRAIN WITH AND WITHOUT CONTRAST FINDINGS: Normal soft tissue structures. Normal calvarium. Normal size ventricles and extra-axial spaces for the patient''s age. Normal white matter tracts of the cerebral hemispheres. Normal basal ganglia and thalami. Normal brainstem. Normal cerebellum. There is no intracranial hemorrhage. There are no findings of an acute ischemic infarction. Normal visualized paranasal sinuses. IMPRESSION: Normal unenhanced and enhanced CT scan of the brain. Study: CTA OF THE BRAIN WITH CONTRAST Normal bilateral petrous carotid arteries. Normal right cavernous carotid artery with a normal supraclinoid bifurcation. Normal left cavernous carotid artery with a normal supraclinoid bifurcation. Normal right A1 segments of the anterior cerebral artery. There is hypoplastic development of the left A1 segment of the anterior cerebral arteries with an atretic but intact artery. Normal intact anterior communicating artery (ACOM). Normal bilateral A2 segments of the anterior cerebral arteries. Normal right M1 and M2 segments of the middle cerebral arteries, with a normal M1 bifurcation. Normal left M1 and M2 segments of the middle cerebral arteries, with a normal M1 bifurcation. Normal right posterior communicating artery (PCOM). Normal left posterior communicating artery (PCOM). Normal bilateral vertebral arteries. Normal basilar artery with a normal basilar bifurcation. The visualized bilateral superior cerebellar (SCA) arteries are normal. Normal bilateral P1, P2 and visualized P3 segments of the posterior cerebral arteries. There is no demonstrated aneurysm of the [place]. There is no demonstrated abnormality of the visualized brain. CT/CTA Head W/WO Contrast IMPRESSION: Normal [place] without a demonstrated aneurysm or hemodynamically significant stenosis. Electronically Signed: Romy Hyatt MD at 17:24 EST ,
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
[2023-09-19] MEDS: DiphenhydrAMINE 50 MG/ML Syringe 25 MG IV (16:11)
[2023-09-19] MEDS: Ketorolac 30 MG/ML Syringe IV (16:12)
[2023-09-19] MEDS: Ondansetron 4 MG/2 ML Vial IV (16:13)
== END 2023-09-19 17:34 | disposition home or self-care (01) ==
LOC: ED 17:32
PROVIDERS: Emergency Provider Emergency Medicine; PCP Internal Medicine; Visit Provider Emergency Medicine
DX: R51.9 Headache, unspecified (principal); Z86.16 Personal history of COVID-19; Z87.891 Personal history of nicotine dependence; Z82.0 Family history of epilepsy and other diseases of the nervous system; Z82.3 Family history of stroke
CPT/HCPCS: 70496; 96374; 96375; 99283; J7040; Q9967; A4216; J2405

== ENCOUNTER → 2024-01-20 | Outpatient (CLI) | payer SELFPAY ==
[2024-01-20 17:59] LABS: Cholesterol 186 mg/dL (200); High Density Lipoprotein 52 mg/dL; T4 Free Direct 0.68 ng/dL (0.76-1.46); Thyroid Stim Hormone (TSH) 1.77 uIU/mL (0.358-3.74); Triglycerides 144 mg/dL; Very Low Density Lipoprotein 29 mg/dL (5-40)
== END | disposition home or self-care (01) ==
PROVIDERS: PCP Internal Medicine; Visit Provider Internal Medicine
DX: E78.5 Hyperlipidemia, unspecified (principal); E03.9 Hypothyroidism, unspecified
CPT/HCPCS: 36415; 80061; 84439; 84443

== ENCOUNTER → 2024-09-16 | Outpatient (CLI) | payer SELFPAY ==
[2024-09-16 09:35] LABS: Absolute Lymphocyte Count 1.83 X10^3/uL (0.83-4.51); Absolute Neutrophil Count 3.7 X10^3/uL (2.0-7.7); Basophil# 0.07 X10^3/uL; Basophil% 1.1 % (0-1); Eosinophil# 0.17 X10^3/uL; Eosinophils% 2.7 % (0-5); Hematocrit 42.3 % (37-47); Hemoglobin 14.4 g/dL (12.0-15.0); Lymphocyte # 1.83 X10^3/ul (0.83-4.51); Lymphocyte % 28.9 % (19-41); Mean Corpuscular Hgb 30.1 pg (27.0-32.0); Mean Corpuscular Volume 88.3 fL (81-99); Mean Platelet Vol. 10.5 fl (6.2-12.0); Monocyte# 0.52 X10^3/uL; Monocyte% 8.2 % (0-10); NRBC Flagged by Analyzer 0 % (0-5); Neutrophil # 3.73 X10^3/uL (2.7-7.7); Neutrophil % 58.8 % (47-70); Platelet Count 282 K/mm3 (150-450); RBC Distribution Width CV 11.8 % (11.6-14.6); RBC Distribution Width SD 37.7 fl (35.1-43.9); Red Blood Count 4.79 M/mm3 (4.2-5.4); White Blood Count 6.3 K/mm3 (4.4-11.0)
[2024-09-16 10:15] LABS: ALB/GLOB Ratio 0.9 RATIO (0.9-2.4); AST(SGOT) 21 U/L (15-37); Alanine Aminotransfer ALT/SGPT 22 U/L (13-56); Albumin, Serum 3.3 g/dL (3.2-5.0); Alkaline Phosphatase 73 U/L (45-117); Anion Gap 3 (5-15); BUN 12 mg/dL (7-18); BUN/Creat Ratio 15.6 RATIO (10-20); Calcium,Total 9.2 mg/dL (8.5-10.1); Chloride 108 mmol/L (98-107); Cholesterol 174 mg/dL (200); Creatinine, Serum 0.77 mg/dL (0.55-1.02); EST Glomerular Filtration Rate 85 mL/min (>60); Est Glom Filt Rate - Afr Amer 103 mL/min (>60); Ferritin 76 ng/mL (8-252); Globulin 3.7 g/dL (2.2-4.2); Glucose 81 mg/dL (74-106); High Density Lipoprotein 64 mg/dL; Iron 131 ug/dL (50-170); Iron Binding Capacity,Total 309 ug/dL (250-450); Potassium 3.8 mmol/L (3.5-5.1); Sodium Level 139 mmol/L (136-145); T4 Free Direct 0.57 ng/dL (0.76-1.46); Triglycerides 163 mg/dL; Very Low Density Lipoprotein 33 mg/dL (5-40)
== END | disposition home or self-care (01) ==
LOC: LAB 09:08
PROVIDERS: PCP Internal Medicine; Referring Provider Internal Medicine; Visit Provider Internal Medicine
DX: E03.9 Hypothyroidism, unspecified (principal); E78.5 Hyperlipidemia, unspecified
CPT/HCPCS: 36415; 80053; 80061; 82728; 83540; 83550; 84439; 84443; 85025

== ENCOUNTER 2024-12-12 14:41 | Emergency (ER) | payer SELFPAY ==
[2024-12-12 14:43] VITALS: BP 119/82; PULSE 111; RESP 16; TEMP 36.3; O2SAT 100; BMI 32.3
--- NOTE | 2024-12-12 16:37 | EX.ED.DYSGE1 ---
HPI History of Present Illness Chief Complaint: Nausea/Vomiting Informant: patient Narrative Narrative: 49-year-old female presenting to the emergency room with nausea and vomiting. Patient states that she ordered the active ingredient of Mounjaro from an online pharmacy. She injected herself around 2200 hrs. last night. She states that around midnight she began to experience nausea and vomiting. This has persisted throughout the day. She notes a headache. She denies any diarrhea. She denies history of pancreatitis liver or gallbladder disease. She notes a history of hypothyroidism as well as taking estrogen replacement. She does have a history of migraines. PFSH PFS Medical History Health care maintenance Arthritis Gastric reflux Elevated antinuclear antibody (UMESH) level Colon cancer screening Family history of autoimmune disorder Hypothyroidism (acquired) Obesity (BMI 30-39.9) Generalized anxiety disorder Surgical menopause on hormone replacement therapy Hyperlipidemia High blood triglycerides Hx of headache Irritable bowel syndrome COVID Alcohol use Thyroid disease Restless legs Migraine headache History of IBS History of rheumatic fever Former smoker Home Medications ?Medication ?Instructions ?Recorded ?Last Taken ?Type cyclobenzaprine 5 mg tablet 5 mg PO TID PRN Muscle Pain 11/19/22 Unknown History multivitamin 1 tab PO DAILY 01/20/23 Unknown History naproxen 250 mg tablet 250 mg PO BID PRN Pain #90 tabs 07/20/23 Unknown Rx sumatriptan succinate 25 mg tablet See Rx Instructions PO .COMPLEX 09/19/23 Unknown Rx (Imitrex) #10 tabs B-complex with vitamin C 1 tab PO DAILY 01/20/24 Unknown History mecobalamin (vitamin B12) 1,000 1,000 mcg PO DAILY 01/20/24 Unknown History mcg chewable tablet meloxicam 15 mg tablet 15 mg PO QDAY PRN 01/20/24 Unknown History estradiol 1 mg tablet 1 mg PO DAILY #90 tabs 02/29/24 Unknown Rx [place] Thyroid 120 mg tablet See Rx Instructions .Route 09/16/24 Unknown Rx (thyroid (pork)) .COMPLEX #90 tabs promethazine 25 mg tablet 25 mg PO Q6H PRN nausea and 12/12/24 Unknown Rx vomiting #20 tabs Allergy/AdvReac Type Severity Reaction Status Date / Time gabapentin Allergy Anaphylaxis Verified 12/12/24 14:46 Family History Father Asthma Grandmother Breast cancer Grandmother Cancer Mother Cancer Colon polyps Diverticulitis Sister Colon polyps Diverticulitis Other Alcoholism Hx of blood clots Mental disorder Surgical History H/O: hysterectomy History of surgery of uterus History of surgery on wrist History of tubal ligation Social History household members: spouse Smoking Status: Former smoker alcohol intake: current alcohol intake frequency: holidays/special occasions only what type of physical activity do you participate in: none ROS ROS ED Constitutional Constitutional ED: Denies chills, fever(s) or weight loss Eyes Eyes: Denies change in vision or diplopia ENT ENT ED: Denies ear pain, rhinorrhea or sore throat Cardiovascular Cardiovascular: Denies chest pain, orthopnea, palpitations or racing heartbeat Respiratory/Chest Respiratory/Chest: Denies cough, dyspnea or orthopnea Gastrointestinal Gastrointestinal: Reports nausea and vomiting; Denies abdominal pain or diarrhea Genitourinary Genitourinary ED: Denies dysuria, hematuria or urinary frequency Musculoskeletal Musculoskeletal: Denies arthralgias, back pain, myalgias or neck pain Integumentary Denies abscess or rash Neurologic Neurologic: Reports headache(s); Denies weakness Psychiatric Psychiatric: Denies anxiety, depression, suicidal ideation or suicidal thoughts Endocrine Endocrinology: Denies polydipsia, polyphagia or polyuria Allergic/Immunologic Allergic/Immunologic ED: Denies mouth swelling, tongue swelling or urticaria EXAM Physical Exam Const Vital Signs: 12/12/24 14:43 12/12/24 16:41 12/12/24 18:00 Temperature 97.3 F L Temperature Source Temporal Pulse Rate 111 H 105 H 94 Respiratory Rate 16 15 16 Blood Pressure 119/82 H 110/74 114/77 Blood Pressure Mean 94 86 89 Pulse Ox 100 99 99 Oxygen Delivery Method Room Air 12/12/24 19:56 Temperature 97.3 F L Temperature Source Pulse Rate 94 Respiratory Rate 16 Blood Pressure 128/69 H Blood Pressure Mean 88 Pulse Ox 99 Oxygen Delivery Method Positive well nourished and well developed General Appearance ED: well developed HEENT Reports normocephalic, head/scalp atraumatic and moist mucous membranes Eyes PERRL and EOMs intact bilaterally Neck no lymphadenopathy, supple and no JVD Resp normal respiratory effort and clear to auscultation bilaterally Cardio regular rate, regular rhythm and no murmurs Rate: tachycardic GI normal to inspection, nondistended, normoactive bowel sounds and non-tender Palpation: soft Back/Spine no CVA tenderness and normal ROM Extremity normal to inspection General Extremety ED: Negative for edema General Extremity: Negative for edema Neuro oriented x3 and CN's II-XII intact bilaterally Sensorium / Orientation: alert Motor Exam: strength 5/5 throughout Psych mental status grossly normal Mood & Affect: Negative for depressed or tearful Skin no rashes or lesions noted and no wounds MDM MDM MDM Narrative Medical decision making narrative: Differential diagnosis includes but not limited to dehydration pancreatitis biliary disease electrolyte abnormalities acute kidney injury medication reaction viral syndrome bowel obstruction IV was established the patient received Zofran Toradol and IV fluids. Patient's blood work shows a white count 9.3 hemoglobin 14.6 platelet count of 299. Potassium slightly low at 3.2 most likely due to the vomiting. BUN of 9 creatinine 0.69 CO2 22.9 normal LFTs normal lipase. Patient was doing better but she had an repeat episode of vomiting I gave her oral Phenergan and she threw that up since we gave additional dose of Zofran. Given the lab workup I think there is high probability that this could be medication induced. She has Zofran at home and I can write for additional Phenergan. Would encourage her to hydrate as best she can. Heart rate down to 94 has been normal tensive. Patient to return to ED if continued symptoms and/or inability to tolerate p.o. History & Record Review Discussion w/independent historian: Patient Lab Data Attestation: I reviewed the patient's lab results. Labs: Laboratory Results - last 24 hr 12/12/24 16:55 WBC 9.3 RBC 4.76 Hgb 14.6 Hct 41.5 MCV 87.2 MCH 30.7 MCHC 35.2 RDW Std Deviation 37.9 RDW Coeff of Bela 11.8 Plt Count 299 MPV 10.5 Immature Gran % (Auto) 0.300 Neut % (Auto) 85.7 H Lymph % (Auto) 10.9 L [place] % (Auto) 2.9 Eos % (Auto) 0.0 Baso % (Auto) 0.2 Absolute Neuts (auto) 7.9 H Absolute Lymphs (auto) 1.01 Nucleated RBC % 0 Sodium 139 Potassium 3.2 L Chloride 104 Carbon Dioxide 22.9 Anion Gap 12 BUN 9 Creatinine 0.69 L Estim Creat Clear Calc 98.93 Est GFR (MDRD) Non-Af 108 BUN/Creatinine Ratio 12.7 Glucose 99 Calcium 9.6 Total Bilirubin 0.30 Direct Bilirubin 0.12 AST 21 ALT 16 Alkaline Phosphatase 77 Total Protein 7.4 Albumin 4.1 Globulin 3.3 Lipase 20 Discharge Plan Triage Chief Complaint: Nausea/Vomiting ED Provider: Jase Jeong Dx/Rx/DC Orders Clinical Impression: Nausea & vomiting, Acute hypokalemia Instructions: ED Vomiting (Adult) Prescriptions: New promethazine 25 mg tablet 25 mg PO Q6H PRN (Reason: nausea and vomiting) Qty: 20 0RF No Action cyclobenzaprine 5 mg tablet 5 mg PO TID PRN (Reason: Muscle Pain) multivitamin Tablet 1 tab PO DAILY meloxicam 15 mg tablet 15 mg PO QDAY PRN B-complex with vitamin C Tablet 1 tab PO DAILY mecobalamin (vitamin B12) 1,000 mcg tablet,chewable 1,000 mcg PO DAILY sumatriptan succinate [Imitrex] 25 mg tablet See Rx Instructions .ROUTE .COMPLEX Qty: 10 0RF Rx Instructions: take 1 tab at onset of headache; if no relief may repeat 1 tab after at least 2 hrs; max = 4 tabs/24 hr naproxen 250 mg tablet 250 mg PO BID PRN (Reason: Pain) Qty: 90 1RF estradiol 1 mg tablet 1 mg PO DAILY Qty: 90 2RF thyroid (pork) [[place] Thyroid] 120 mg tablet See Rx Instructions .ROUTE .COMPLEX Qty: 90 1RF Dose Instruction: Take 1 tablet by mouth once daily Rx Instructions: Take 1 tablet by mouth once daily Primary Care Provider: Kumar Irby Referrals: Kumar Irby MD [Primary Care Provider] - 1-2 Days if not improving Print Language: Chinese Disposition Disposition: Home, Self Care Discharge Date/Time: 12/12/24 20:02
[2024-12-12 16:41] VITALS: BP 110/74; PULSE 105; RESP 15; O2SAT 99
[2024-12-12] MEDS: Ondansetron 4 MG/2 ML Vial IV ×2 (16:58→19:34)
[2024-12-12] MEDS: 0.9% Normal Saline (1000mL) 1,000 ML 1000 ML IV (16:58)
[2024-12-12] MEDS: Ketorolac 30 MG/ML Syringe IV (16:58)
[2024-12-12 17:13] LABS: Absolute Lymphocyte Count 1.01 X10^3/uL (0.83-4.51); Absolute Neutrophil Count 7.9 X10^3/uL (2.0-7.7); Basophil# 0.02 X10^3/uL; Basophil% 0.2 % (0-1); Hematocrit 41.5 % (37-47); Hemoglobin 14.6 g/dL (12.0-15.0); Lymphocyte # 1.01 X10^3/ul (0.83-4.51); Lymphocyte % 10.9 % (19-41); Mean Corp Hgb Conc 35.2 g/dL (32-36); Mean Corpuscular Hgb 30.7 pg (27.0-32.0); Mean Corpuscular Volume 87.2 fL (81-99); Mean Platelet Vol. 10.5 fl (6.2-12.0); Monocyte# 0.27 X10^3/uL; Monocyte% 2.9 % (0-10); NRBC Flagged by Analyzer 0 % (0-5); Neutrophil # 7.92 X10^3/uL (2.7-7.7); Neutrophil % 85.7 % (47-70); Platelet Count 299 K/mm3 (150-450); RBC Distribution Width CV 11.8 % (11.6-14.6); RBC Distribution Width SD 37.9 fl (35.1-43.9); Red Blood Count 4.76 M/mm3 (4.2-5.4); White Blood Count 9.3 K/mm3 (4.4-11.0)
[2024-12-12 17:53] LABS: AST(SGOT) 21 U/L (<=31); Alanine Aminotransfer ALT/SGPT 16 U/L (<=34); Albumin, Serum 4.1 g/dL (3.5-5.0); Alkaline Phosphatase 77 U/L (35-104); Anion Gap 12 (5-15); BUN 9 mg/dL (4-19); BUN/Creat Ratio 12.7 RATIO (10-20); Bilirubin, Direct 0.12 mg/dL (0.00-0.30); Calcium,Total 9.6 mg/dL (7.6-11.0); Carbon Dioxide 22.9 mmol/L (21.0-32.0); Chloride 104 mmol/L (98-108); Creatinine, Serum 0.69 mg/dL (0.70-1.20); EST Glomerular Filtration Rate 108 (>60); Estimated Creatinine Clearance 98.93 ml/min (50-250); Globulin 3.3 g/dL (2.2-4.2); Glucose 99 mg/dL (70-99); Lipase 20 U/L (13-75); Potassium 3.2 mmol/L (3.3-5.1); Protein, Total 7.4 g/dL (5.9-8.4); Sodium Level 139 mmol/L (133-145)
[2024-12-12 18:00] VITALS: BP 114/77; PULSE 94; RESP 16; O2SAT 99
[2024-12-12] MEDS: Acetaminophen 500 MG Tablet 1000 MG PO (18:50)
[2024-12-12] MEDS: proMETHazine 25 MG Tablet PO (19:14)
[2024-12-12 19:56] VITALS: BP 128/69; PULSE 94; RESP 16; TEMP 36.3; O2SAT 99
== END 2024-12-12 20:02 | disposition home or self-care (01) ==
PROVIDERS: Emergency Provider Emergency Medicine; PCP Internal Medicine; Visit Provider Emergency Medicine
DX: R11.2 Nausea with vomiting, unspecified (principal); E78.5 Hyperlipidemia, unspecified; Z87.891 Personal history of nicotine dependence; E87.6 Hypokalemia; Z98.51 Tubal ligation status; Z90.710 Acquired absence of both cervix and uterus
CPT/HCPCS: 80048; 80076; 83690; 85025; 96361; 96374; 96375; 96376; 99285; A4216; J2405

== ENCOUNTER → 2025-06-12 | Outpatient (CLI) | payer SELFPAY ==
--- NOTE | 2025-06-12 15:29 | BI_ITS ---
EXAM: SCRN MAMM (CAD)W/ARVIN BILAT DATE: 06/12/2025 CLINICAL HISTORY: F, Age 50 y/o , SCREENING Grandmother with history of breast cancer. TECHNIQUE: Procedure Code: [id number] Modality: MG Procedure: SCRN MAMM (CAD)W/ARVIN BILAT COMPARISON: Prior exam(s) dated December 17, 2022.. FINDINGS: TISSUE DENSITY: The breasts are heterogeneously dense, which may obscure small masses. Bilateral Breast Mammographic Findings: No significant masses, calcifications or other abnormalities are identified. Stable benign-appearing bilateral axillary lymph nodes. No suspicious masses, areas of developing architectural distortion, or suspicious calcifications. There has been no significant interval change. BI/SCRN MAMM (CAD)W/ARVIN BILAT IMPRESSION: Stable bilateral screening mammogram. OVERALL FINAL ASSESSMENT BI-RADS 2: BENIGN RECOMMENDATION: Routine annual follow-up in 1 Year A letter with findings and recommendations will be mailed to the patient. Reading Location: [facility]
== END | disposition home or self-care (01) ==
PROVIDERS: PCP Internal Medicine
DX: Z12.31 Encounter for screening mammogram for malignant neoplasm of breast (principal); E28.310 Symptomatic premature menopause
CPT/HCPCS: 77063; 77067